=== PATIENT | female | born 1965 | race Caucasian/White ===

== ENCOUNTER 2022-04-19 14:21 | Emergency (ER) | payer OTHER, SELFPAY ==
--- NOTE | ~2022-04-19 | CT_ITS ---
EXAMINATION: CT abdomen pelvis w con DATE: 04/19/2022 19:03 INDICATION: Right flank pain, eval for kidney stone TECHNIQUE: Computed tomography (CT) of the abdomen and pelvis was performed with 100 mL Omnipaque-350 intravenous contrast. Automated exposure control and iterative reconstruction technique were employe d. The dose-length product was 363.86 mGy-cm. COMPARISON: None. FINDINGS: Lower thorax: Unremarkable Liver: Normal. Biliary/Gallbladder: Gallbladder is normal. No bile duct dilation. Pancreas: No mass or duct dilation. Spleen: Normal. Adrenals:No mass. Kidneys: Mild right hydronephrosis with perinephric and periureteral stranding. Multiple bilateral no nobstructing calculi. Slightly delayed right nephrogram. No suspicious renal mass. GI tract: Esophagitis/gastritis No small or large bowel dilation. Appendix not confidently visualized Mesentery/Peritoneum: No ascites, mass, or free air. Retroperitoneum: No mass. Minimal atherosclerotic abdominal aortic and/or arterial calcifications. Pelvis: Pelvic organs are within normal limits. Soft Tissues: Soft tissues and body wall unremarkable. Bones: No acute osseous finding. IMPRESSION: 5 mm distal right ureteral stone causing mild-moderate obstructive uropathy. Reviewed, dictated and finalized at location K.
[2022-04-19 14:51] VITALS: BP 130/79; PULSE 59; RESP 16; TEMP 36.6; O2SAT 99
[2022-04-19 16:03] LABS: Basophils Percent Auto 0.4 % (0.2-1.2); Eosinophils Absolute Auto 0.1 K/mm3 (0-0.3); Eosinophils Percent Auto 1.3 % (0-4.4); Hematocrit 40.8 % (37.0-47.0); Hemoglobin 13.6 g/dL (12.0-15.0); Immature Granulocyte Absolute 0.07 K/mm3 (0.00-0.031); Immature Granulocyte Percent A 0.7 % (0-0.5); Lymphocytes Absolute Auto 2.13 K/mm3 (0.9-3.2); Lymphocytes Percent Auto 22.6 % (18.3-44.2); Mean Corpuscular HGB Conc 33.3 g/dl (32-36); Mean Corpuscular Hemoglobin 31.3 pg (26-34); Mean Platelet Volume 10.2 fl (7.4-10.4); Monocytes Absolute Auto 0.5 K/mm3 (0.1-0.6); Neutrophils Absolute Auto 6.6 K/mm3 (1.3-6.7); Platelet Count Result 175 k/mm3 (150-375); Red Blood Count 4.34 M/mm3 (4.2-5.4); Red Cell Distribution Width 12.9 % (11.5-14.5); White Blood Count 9.4 K/mm3 (4.5-10.0)
[2022-04-19 16:11] LABS: Appearance Urine Slightly Cloudy (Clear); Bilirubin Urine Negative (Negative); Blood Urine 3+ (Negative); Color Urine Yellow (Yellow); Glucose Urine UA Negative (Negative); Ketones Urine 1+ mg/dL (Negative); Leukocyte Esterase Ur Negative LEU/UL (Negative); Nitrate Urine Negative (Negative); Protein Urine Negative (Negative); Specific Grav Ur 1.025 (1.001-1.035); Urobilinogen Urine 0.2 mg/dL (<2.0); pH Urine 5.5 (5.0-9.0)
[2022-04-19 16:19] LABS: Add Urine Microscopic? YES; Mucus Urine Rare /lpf; RBC Urine >75 /hpf (0-2); Squamous Epithelial Cell Urine Rare /hpf (Few)
[2022-04-19 16:23] LABS: Alanine Aminotransferase 19 U/L (6-35); Albumin Level 4.5 g/dL (3.5-5.1); Alkaline Phosphatase 79 U/L (38-126); Anion Gap 10 mmol/L (8-16); Aspartate Amino Transferase 26 U/L (14-36); Bilirubin,Total 0.4 mg/dL (0.2-1.3); Blood Urea Nitrogen 25 mg/dL (7-17); Calcium 9.1 mg/dL (8.4-10.2); Carbon Dioxide 27 mmol/L (22-30); Chloride 103 mmol/L (98-107); Estimated CRCL calculation 71 ml/min; Estimated Glomerular Filt Rate > 60; Glucose 109 mg/dL (65-110); Potassium 4.4 mmol/L (3.4-5.0); Sodium 140 mmol/L (137-145)
[2022-04-19 16:34] LABS: Lipase 87 U/L (23-300)
[2022-04-19 18:17] VITALS: BP 167/98; PULSE 62; RESP 16; O2SAT 100
--- NOTE | 2022-04-19 18:24 | ED.ABDPAIN ---
HPI - Abdominal Pain General Chief Complaint: Abdominal Pain Stated Complaint: right flank pain x 1 day - hx kidney stones Time Seen by Provider: 04/19/22 18:16 History of Present Illness HPI narrative: This is a 56-year-old female past medical history of hypothyroidism and prior kidney stone, who presents to the emergency department complaining of right-sided flank and right lower quadrant abdominal pain for the past day. She states she had pain with urination approximately 5 days ago started on a antibiotic course with improvement, then developed pain today. She states pain at max is 8 out of 10, associated with nausea but is currently 2 out of 10. She denies fevers, chills, chest pain or shortness of breath. Related Data Home Medications Medication Instructions Recorded Confirmed levothyroxine 100 mcg tablet mcg 04/19/22 (Synthroid) paroxetine HCl 10 mg tablet mg PO 04/19/22 Allergies Allergy/AdvReac Type Severity Reaction Status Date / Time Latex, Natural Rubber Allergy Rash Verified 04/19/22 14:22 Review of Systems Review of Systems: CONSTITUTIONAL: Denies fever, chills, or sweats. EYES: Denies visual changes, redness, or discharge. ENT: Denies rhinorrhea, congestion, sore throat, or otalgia. CARDIOVASCULAR: Denies chest pain, palpitations, or edema. RESPIRATORY: Denies cough or dyspnea. GASTROINTESTINAL: abdominal pain, nausea Denies vomiting, or diarrhea. GENITOURINARY: Denies dysuria or hematuria. SKIN: Denies rash or itching. MUSCULOSKELETAL: Denies back pain, joint pain, or myalgia. NEUROLOGIC: Denies headache, numbness, dizziness, or weakness. PSYCHIATRIC: Denies anxiety or depression. [facility] Past Medical History Medical History (Updated 04/20/22 @ 00:37 by Ayaz Aragon MD) Kidney calculi UTI (urinary tract infection) Social History Social History (Updated 04/20/22 @ 00:37 by Ayaz Aragon MD) Smoking status: Never smoker Alcohol intake: current Substance use: never Comments No significant surgical or family history Exam Narrative: GENERAL: Well-appearing, well-nourished, and in no acute distress. HEAD: Normocephalic, atraumatic. EYES: PERRLA and EOMI. ENT: Nares clear, no rhinorrhea or epistaxis. Mucous membranes moist. Oropharynx without tonsillar hypertrophy exudate or other lesions. NECK: Supple. No adenopathy or masses. No carotid bruits or JVD CHEST: Clear to auscultation. No respiratory distress. No wheezes rales or rhonchi HEART: Regular rate and rhythm. No murmur heard. Normal peripheral pulses. ABDOMEN: Soft, minimally tender to palpation in the right lower quadrant without rebound, nondistended, normal active bowel sounds. No CVA tenderness to palpation EXTREMITIES: Normal range of motion. No edema. SKIN: Warm, dry, no rash. NEURO: No focal deficits. Alert and oriented x3. PSYCH: Normal mood and affect. Course Course Emergency Course: 19:25 -CT demonstrates 5 mm distal stone with mild hydronephrosis. UA is not concerning for UTI. CBC within normal limits. Chemistry is not concerning for kidney injury or other metabolic abnormality. Reassessed patient. She states her pain is improved. Will discharge with pain medications antiemetics, and Flomax. Discussed return emergency precautions including signs/symptoms of sepsis with the patient and her . They both voiced understanding and are comfortable with the plan. All questions answered to their satisfaction. Vital Signs Vital signs: Vital Signs Temperature 97.8 F 04/19/22 14:51 Pulse Rate 59 L 04/19/22 14:51 Respiratory Rate 16 04/19/22 14:51 Blood Pressure 130/79 04/19/22 14:51 Pulse Oximetry 99 04/19/22 14:51 Oxygen Delivery Room Air 04/19/22 14:51 Temperature 97.8 F 04/19/22 14:51 Pulse Rate 69 04/19/22 20:05 Respiratory Rate 16 04/19/22 18:17 Blood Pressure 154/97 H 04/19/22 20:05 Pulse Oximetry 97 04/19/22 20:05 Oxygen Delivery Room Air
[2022-04-19] MEDS: ONDANSETRON HCL ODT 4 MG TABLET PO (18:37)
--- NOTE | 2022-04-19 19:25 | PC.NURSE ---
1899 Assumed pt care from IGOR Malhotra
[2022-04-19 20:05] VITALS: BP 154/97; PULSE 69; O2SAT 97
== END 2022-04-19 20:05 | disposition home or self-care (01) ==
PROVIDERS: Emergency Medicine; Emergency Provider Preventive Medicine Aerospace Medicine
DX: N13.2 Hydronephrosis with renal and ureteral calculous obstruction (principal); R10.31 Right lower quadrant pain; E03.9 Hypothyroidism, unspecified
CPT/HCPCS: 36415; 74177; 80053; 81001; 83690; 85025; 87086; 96365; 99284; A9270; J0131; Q9967

== ENCOUNTER 2022-11-24 08:15 | Emergency (ER) | payer OTHER, SELFPAY ==
--- NOTE | 2022-11-24 08:17 | ED.URI ---
HPI - URI/Sore Throat General Chief Complaint: Upper Respiratory Infection Stated Complaint: sinus issues Time Seen by Provider: 11/24/22 08:23 Source: patient, RN notes reviewed and old records reviewed Mode of arrival: ambulatory Limitations: no limitations History of Present Illness HPI Narrative: 57-year-old female presents to the [facility] with complaints of sinus congestion that started on November 14, 2010 days ago. Has progressed to a sore throat and bilateral ear pressure over the last couple of days. Has taken ibuprofen and Vicks cold and flu. Denies fevers, chest pain, abdominal pain. No coughing, shortness of breath. Onset (ago): day(s) () Related Data Home Medications Medication Instructions Recorded Confirmed levothyroxine 100 mcg tablet 100 mcg PO DAILY 04/19/22 11/24/22 (Synthroid) paroxetine HCl 10 mg tablet 10 mg PO DAILY 04/19/22 11/24/22 Allergies Allergy/AdvReac Type Severity Reaction Status Date / Time Latex, Natural Rubber Allergy Rash Verified 11/24/22 08:32 Review of Systems Review of Systems: All systems reviewed & are unremarkable except as noted in HPI and below Constitutional: Constitutional: Reports no additional constitutional complaints Eyes: Eyes: Reports no additional eye complaints ENT: Reports as per HPI, Reports otalgia (Bilateral), Reports nasal discharge, Reports sinus pressure and Reports sore throat Cardiovascular: Cardiovascular: Reports no additional cardiovascular complaints, Denies chest pain and Denies dyspnea Respiratory: Respiratory: Reports no additional respiratory complaints, Denies chest congestion, Denies cough and Denies dyspnea Gastrointestinal: Gastrointestinal: Reports no additional gastrointestinal complaints, Denies abdominal pain, Denies nausea and Denies vomiting Musculoskeletal: Musculoskeletal: Reports no additional musculoskeletal complaints Integumentary/Breasts: Skin/Breast: Reports system reviewed and no additional complaints, except as docu Neurologic: Reports system reviewed and no additional complaints, except as documented Psychiatric: Psychiatric: Reports no additional psychiatric complaints Allergic/Immunologic: Allergic/Immunologic: Reports no additional allergic/immunologic complaints PMFSH Past Medical History Medical History (Updated 11/24/22 @ 08:50 by Sue Dolan APRN) Hypothyroidism Kidney calculi UTI (urinary tract infection) Social History Social History Smoking status: Never smoker Alcohol intake: current Substance use: never Comments At the time of my signature, I reviewed and agree with the nursing past medical, surgical, social, and family history. There is no relevant family history pertinent to the patient complaint. Exam Const: General: cooperative, healthy appearing, comfortable, no acute distress, well developed, alert and well nourished Nutritional Appearance: well nourished Orientation/consciousness: patient oriented x3 Limitations: no limitations HENMT: Head: normal to inspection Ears: hearing grossly normal bilaterally, external ears normal, EAC's normal and TM abnormal bulging on the left and with fluid behind the TM bilateral; not erythematous Face/Nose/Sinus: Normal external nose present, Normal nares present, Normal nasal mucous membranes and turbinates present and normal facial exam Face and sinus: normal facial exam Mouth: Yes Normal oral and palatal mucosa present, Yes lip normal and Yes moist mucous membranes Throat: posterior oropharynx normal, tonsils normal and uvula midline Eyes: General: appearance normal, both eyes and all related structures Alignment and Position: alignment normal Periorbital: periorbital findings normal Conjunctivae: conjunctivae normal Pupils: Equal, round and reactive pupils present EOM: EOMs intact bilaterally Neck: Neck: normal visual inspection, full ROM, no lymphadenopathy and no meningeal si
[2022-11-24 08:23] VITALS: BP 126/71; PULSE 76; RESP 18; TEMP 36.6; O2SAT 100
== END 2022-11-24 08:50 | disposition home or self-care (01) ==
PROVIDERS: Emergency Provider Nurse Practitioner
DX: J01.11 Acute recurrent frontal sinusitis (principal); J02.9 Acute pharyngitis, unspecified; E03.9 Hypothyroidism, unspecified
CPT/HCPCS: 87081; 87880; 99213; G0463

== ENCOUNTER 2022-12-08 13:54 | Emergency (ER) | payer OTHER, SELFPAY ==
[2022-12-08 14:04] VITALS: BP 159/92; PULSE 64; RESP 12; TEMP 37; O2SAT 100
--- NOTE | 2022-12-08 14:05 | ED.URI ---
HPI - URI/Sore Throat General Chief Complaint: Upper Respiratory Infection Stated Complaint: sore throat; congestion Source: patient and RN notes reviewed History of Present Illness HPI Narrative: 57 yo F presents to urgent care with complaints of right ear pain, right sided sore throat, and sinus drainage. Pt states she was dx with sinusitis 2 weeks ago and took 6.5 days worth of Augmentin (she lost the last pill). Pt states she was feeling significantly better with this but her symptoms didn't go away completely. Pt states her symptoms are worsening since this past weekend. Denies any fevers, chills, chest pain, SOB, or vomiting. Related Data Home Medications Medication Instructions Recorded Confirmed levothyroxine 100 mcg tablet 100 mcg PO DAILY 04/19/22 12/08/22 (Synthroid) paroxetine HCl 10 mg tablet 10 mg PO DAILY 04/19/22 12/08/22 Allergies Allergy/AdvReac Type Severity Reaction Status Date / Time Latex, Natural Rubber Allergy Rash Verified 12/08/22 14:03 Review of Systems Review of Systems: Pertinent positives and pertinent negatives per HPI. [facility] Past Medical History Medical History (Updated 12/08/22 @ 14:26 by Millicent Mckeon APRN) Hypothyroidism Kidney calculi UTI (urinary tract infection) Social History Social History Smoking status: Never smoker Alcohol intake: current Substance use: never Comments At the time of my signature, I reviewed and agree with the nursing past medical, surgical, social, and family history. There is no relevant family history pertinent to the patient complaint. Exam Narrative: GENERAL: This is a well-nourished, well-developed patient, in no apparent distress. HEAD: normocephalic, atraumatic. EYES: Sclera clear/white. Vision is grossly intact. EARS: External ears normal, auditory canals clear and without drainage, TMs normal without perforation. Hearing grossly intact. NOSE: External nose normal with no obvious nasal discharge, nares without redness, no rhinorrhea. THROAT: Mucous membranes moist, posterior pharynx clear. NECK: Neck supple, non-tender without lymphadenopathy, masses or thyromegaly. CARDIOVASCULAR: Regular rate and rhythm without murmurs, gallops, or rubs. RESPIRATORY: Clear to auscultation. Breath sounds equal bilaterally. No wheezes, rales, or rhonchi. SKIN: warm, intact with no suspicious lesions or rash, good texture and turgor. NEURO: awake, alert, and oriented to person, place and time. There were no obvious focal neurologic abnormalities. EXTREMITIES: No clubbing, cyanosis, or edema. No joint tenderness, effusion, or edema noted. BACK: Nontender without deformity or crepitance. No flank tenderness. Course Course Level of Care: Express Care Visit Vital Signs Vital signs: Vital Signs Temperature 98.6 F 12/08/22 14:04 Pulse Rate 64 12/08/22 14:04 Respiratory Rate 12 12/08/22 14:04 Blood Pressure 159/92 H 12/08/22 14:04 Pulse Oximetry 100 12/08/22 14:04 Oxygen Delivery Room Air 12/08/22 14:04 Temperature 98.6 F 12/08/22 14:04 Pulse Rate 64 12/08/22 14:04 Respiratory Rate 12 12/08/22 14:04 Blood Pressure 159/92 H 12/08/22 14:04 Pulse Oximetry 100 12/08/22 14:04 Oxygen Delivery Room Air 12/08/22 14:04 reviewed MDM - URI/Sore Throat MDM Narrative Medical decision making narrative: Take the antibiotics as directed. May use a nasal saline spray twice a day, each side, x 5-7 days. Increase your Vitamin C and fluids. 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 Differential Diagnosis Differential diagnosis: Likely upper respiratory infection, sinusitis and pharyngitis Lab Data Attestation: I reviewed the patient's lab results. Critical Care Time Critical Care Time Critical Care Time: No Discharge Plan Discharge Clinical Impression: Sinusitis Qualifiers: Sinusitis location: unspecified location Chronicity: subacute Qual
== END 2022-12-08 14:29 | disposition home or self-care (01) ==
PROVIDERS: Emergency Provider Nurse Practitioner Family
DX: J01.90 Acute sinusitis, unspecified (principal); E03.9 Hypothyroidism, unspecified
CPT/HCPCS: 87081; 87880; 99213; G0463

== ENCOUNTER 2025-06-23 08:52 | Emergency (ER) | payer OTHER, SELFPAY ==
[2025-06-23 09:00] VITALS: BP 127/83; PULSE 79; RESP 16; TEMP 36.4; O2SAT 96
--- NOTE | 2025-06-23 09:18 | ED_ITS ---
HPI - General Adult General Chief complaint: Headache Stated complaint: headache/nausea Time Seen by Provider: 06/23/25 09:14 Source: patient, RN notes reviewed and old records reviewed Mode of arrival: ambulatory Limitations: no limitations History of Present Illness HPI narrative: 59 year old female presents to [facility] care with complaints of 5 day history of sinus headache in frontal area with pressure sensation to face and ears feel full. Patient reports that she has had nausea with the headache and has vomited x1. Patient reports no history of migraines or recurrent headache problems.Patient denies any sore throat, cough, no known fevers, or body aches. She has taken Ibuprofen and Aspirin for her discomfort. MD complaint: headache, ear pressure, sinus pressure. Onset (ago): day(s) (5) Severity scale (1-10): 4 Quality: aching and other (pressure) Treatments prior to arrival: NSAID and aspirin Related Data Home Medications ?Medication ?Instructions ?Recorded ?Confirmed ?Last Taken ?Type levothyroxine 100 mcg tablet 100 mcg PO DAILY 04/19/22 12/08/22 Unknown History (Synthroid) paroxetine HCl 10 mg tablet 10 mg PO DAILY 04/19/22 Unknown History estradiol 0.01% (0.1 mg/gram) vaginal 06/23/25 Unknow n History vaginal cream hydrochlorothiazide 12.5 mg capsule mg 06/23/25 Unkno wn History Allergies Allergy/AdvReac Type Severity Reaction Status Date / Time Latex, Natural Rubber Allergy Rash Verified 06/23/25 09:17 Review of Systems Review of Systems: CONSTITUTIONAL:reports malaise, no chills, sweats, or fever. EYES: Denies visual changes, redness, or discharge. ENT: Reports no rhinorrhea, +congestion, +sinus pain, +otalgia and no sore throat. CARDIOVASCULAR: Denies chest pain, palpitations, or edema. RESPIRATORY: Reports no cough.? Denies dyspnea. GASTROINTESTINAL: Denies abdominal pain, nausea, vomiting, diarrhea SKIN: Denies rash or itching. MUSCULOSKELETAL: Denies myalgia. NEUROLOGIC: Reports frontal headache. All systems reviewed & are unremarkable except as noted in HPI and below PMFSH Past Medical History Medical History (Updated 06/24/25 @ 08:28 by Emma Castillo APRN) Anxiety Sinusitis Hypothyroidism UTI (urinary tract infection) Kidney calculi Social History Social History Smoking status: Never smoker Alcohol intake: current Substance use: never Living arrangements: with family Gender identity (if verbalized by the patient): Female Comments At time of signature, agree with nursing past medical, surgical, social and family history. There is no relevant family history pertinent to the presenting complaint Exam Narrative: GENERAL: Well-appearing, well-nourished, and in no acute distress. HEAD: Normocephalic EYES: PERRLA, conjunctivae clear ENT: Nares clear, turbinates edematous and erythematous, clear discharge sinus pressure and frontal headache. Mucous membranes moist. TM pearly conroy with dull light reflex bilaterally; no tragal tenderness. Oropharynx erythematous without lesions. Tonsils not enlarged and without exudate, no drooling, no hoarseness, no trismus, uvula midline. NECK: Supple. No lymphadenopathy CHEST: Clear to auscultation, breath sounds equal. No wheezing, rhonchi, rales, or stridor. No respiratory distress, speaks in full sentences.SAO2 96% on room air HEART: Regular rate and rhythm. No murmur heard. SKIN: Warm, dry, no rash. NEURO: Alert and oriented x3. PSYCH: Normal mood and affect Course Course Level of Care: Express Care Visit Vital Signs Vital signs: Vital Signs Temperature 36.4 C L 06/23/25 09:00 Pulse Rate 79 06/23/25 09:00 Respiratory Rate 16 06/23/25 09:00 Blood Pressure 127/83 06/23/25 09:00 Pulse Oximetry 96 06/23/25 09:00 Oxygen Delivery Room Air 06/23/25 09:00 Temperature 36.4 C L 06/23/25 09:00 Pulse Rate 79 06/23/25 09:00 Respiratory Rate 16 06/23/25 09:00 Blood Pressure 127/83 06/23/25 09:00 Pulse Oximetry 96 06/23/25 09:00 Oxygen Delivery Room Air 06/23/25 09:00 reviewed MDM MDM Narrative Medical decision making narrative: Patient with 5 days of frontal headache, sinus pressure and ears feeling full with no fevers reported, appears nontoxic and appropriate for outpatient follow up as needed with anticipatory guidance and reasons to seek care in ED reviewed with patient. Differential Diagnosis Differential Diagnosis: Differential diagnostic considerations for upper respiratory infection include upper respiratory infection, croup, otitis media, sinusitis, viral infection, bronchitis, influenza, pharyngitis, strep, uvulitis.? Critical Care Time Critical Care Time Critical Care Time: No Discharge Plan Discharge Clinical Impression: Bacterial sinusitis Patient Disposition: Home Condition: Stable Instructions: Antibiotic Form, Rhinosinusitis (ED) Additional Instructions: Increase fluids especially juices and water [id number] cough and cold medicine of your choice for your symptoms Zyrtec Claritin or Ayesha daily include plain Sudafed one tab in am and one in early pm heat to the face 20-30 minutes 4-6 times a day for pain Salt water gargles, throat lozenges or throat sprays as desired Antibiotic as directed--finished the medication If your symptoms persist, change or worsen significantly before you can contact your personal physician then please, without delay, go to the emergency department for further evaluation. Follow-up with PCP in 7-10 days or sooner if needed Follow up with PCP soon in regards to your blood pressure which is elevated above threshold for referral. Blood pressure above 120/80 may indicate pre-hypertension. minimal elevation 127/83 Patient Language: [place] Prescriptions: New amoxicillin 875 mg tablet 875 mg PO Q12H Qty: 14 0RF No Action hydrochlorothiazide 12.5 mg capsule estradiol 0.01 % (0.1 mg/gram) cream VAGINAL paroxetine HCl 10 mg tablet 10 mg PO DAILY levothyroxine [Synthroid] 100 mcg tablet 100 mcg PO DAILY Follow-up/Referrals: Gabo,Patricio [Other] Time of Disposition: 09:31 Quality Noah Coma Scale Eyes: Open Verbal: Oriented and Alert Motor: Follows Commands [place] Com[place] Total Score: 15
== END 2025-06-23 09:40 | disposition home or self-care (01) ==
PROVIDERS: Emergency Provider Registered Nurse
DX: J32.9 Chronic sinusitis, unspecified (principal); E03.9 Hypothyroidism, unspecified; F41.9 Anxiety disorder, unspecified
CPT/HCPCS: 99213; G0463